=== PATIENT | male | born 1970 | race Caucasian/White ===

== ENCOUNTER → 2017-01-27 | Outpatient (CLI) | payer BC ==
[~2017-01-27] MED LIST: AZO PO; IBUP-1050 PO
--- NOTE | 2017-01-27 14:14 | DIAGNOSTIC IMAGING REPORT ---
TESTICULAR ULTRASOUND CLINICAL HISTORY: SCROTAL MASS COMPARISON STUDY: No previous studies for comparison. FINDINGS: The right testis measures 49 x 21 x 30 mm. The left testis measures 52 x 23 x 27 mm. No intratesticular masses are visualized. There is no evidence of testicular torsion. There are right-sided epididymal cysts/spermatocele. The largest measures 28 mm. IMPRESSION: 1. No evidence of intratesticular mass 2. No evidence of testicular torsion 3. 28 mm right epididymal cyst/spermatocele Electronically signed by: Gregorio Degroot M.D. 01/27/2017 2:13 PM Dictated Date/Time: 01/27/2017 2:11 PM
== END | disposition home or self-care (01) ==
LOC: C.ULTR 13:33
PROVIDERS: ATTEND Physician Assistant Medical
DX: N43.41 Spermatocele of epididymis, single (principal)

== ENCOUNTER → 2017-02-04 | Outpatient (CLI) | payer BC ==
[2017-02-04 18:14] LABS: CHOLESTEROL/HDL RATIO 3.2
== END | disposition home or self-care (01) ==
LOC: C.LABPVFM 15:03
PROVIDERS: ATTEND Physician Assistant Medical
DX: Z00.00 Encounter for general adult medical examination without abnormal findings (principal)